=== PATIENT | male | born 1990 | race Native Hawaiian/Other Pacific Islander ===

== ENCOUNTER 2022-02-21 08:19 | Inpatient (IN) | payer BC ==
[2022-02-21] MEDS ORDERED: DICYCLOMINE HCL 10 MG CAPSULE PO PRN (09:31)
[2022-02-21] MEDS ORDERED: chlordiazePOXIDE HCL 25 MG CAPSULE PO PRN (09:31)
[2022-02-21] MEDS ORDERED: POLYETHYLENE GLYCOL (HEALTHYLAX) 3350 17 GM PACKET PO PRN (09:31)
[2022-02-21] MEDS ORDERED: BISMUTH SUBSALICYLATE 524 MG/30 ML PO PRN (09:31)
[2022-02-21] MEDS ORDERED: ACETAMINOPHEN 325 MG TABLET (FP) PO PRN ×2 (09:31)
[2022-02-21] MEDS ORDERED: MAG HYDROX/AL HYDROX/SIMETH 30 ML UNIT-DOSE CUP PO PRN (09:31)
[2022-02-21] MEDS ORDERED: BENZOCAINE/MENTHOL (CHLORASEPTIC ) LOZENGE MM PRN (09:31)
[2022-02-21] MEDS ORDERED: IBUPROFEN 400 MG TABLET (FP) PO PRN (09:31)
[2022-02-21] MEDS ORDERED: ONDANSETRON *ODT* 4 MG TABLET SL PRN (09:31)
[2022-02-21] MEDS ORDERED: IBUPROFEN 600 MG TABLET (FP) PO PRN (09:31)
[2022-02-21] MEDS ORDERED: NALOXONE HCL (KLOXXADO) 8 MG SPRAY NS PRN (09:31)
[2022-02-21] MEDS ORDERED: MAGNESIUM HYDROX 2400MG/30ML ORAL SUSPENSION 30 ML CUP PO PRN (09:31)
[2022-02-21] MEDS ORDERED: LOPERAMIDE HCL 2 MG CAPSULE PO PRN (09:31)
[2022-02-21 09:41] VITALS: BMI 24.7
[2022-02-21] MEDS ORDERED: chlordiazePOXIDE HCL 25 MG CAPSULE ONE (10:13)
[2022-02-21] MEDS ORDERED: chlordiazePOXIDE HCL 25 MG CAPSULE PO ONE (10:15)
[2022-02-21] MEDS: PRENATAL VITAMINS W/ FOLIC ACID TABLET (FP) PO SCH (10:59)
[2022-02-21] MEDS: chlordiazePOXIDE HCL 25 MG CAPSULE PO SCH ×3 (12:03→22:42)
[2022-02-21 14:51] LABS: HEMATOCRIT 48.9 % (35.4-49); HEMOGLOBIN 16.5 GM/dL (11.7-16.9); MCH 29.7 pg (25.7-33.7); MCHC 33.7 g/dl (32.0-35.9); MEAN CELL VOLUME 88.2 fl (80-96); MEAN PLT VOLUME 7.7 fl (7.5-11.1); PLATELET COUNT 346 10^3/uL (134-434); RBC 5.54 M/mm3 (4.00-5.60); RDW 14.9 % (11.9-15.9); WHITE BLOOD COUNT 5.9 K/mm3 (4.0-10.0)
[2022-02-21 15:54] LABS: ALBUMIN 4.3 g/dl (3.4-5.0); BLOOD UREA NITROGEN 15.9 mg/dL (7-18); CREATININE 0.9 mg/dL (0.55-1.3)
[2022-02-21 15:56] LABS: BILIRUBIN,TOTAL 2.1 mg/dL (0.2-1); CALCIUM 10.1 mg/dL (8.5-10.1)
[2022-02-21] MEDS: THIAMINE HCL 100 MG TABLET (FP) PO SCH (22:41)
[2022-02-21] MEDS: MELATONIN 5 MG TABLETS PO SCH (22:42)
[2022-02-22] MEDS: chlordiazePOXIDE HCL 25 MG CAPSULE PO SCH ×4 (05:13→22:27)
[2022-02-22] MEDS: METHOCARBAMOL 500 MG TABLET PO PRN (10:28)
[2022-02-22] MEDS: hydrOXYzine PAMOATE 25 MG CAPSULE (FP) PO PRN ×2 (10:28→13:32)
[2022-02-22] MEDS: PRENATAL VITAMINS W/ FOLIC ACID TABLET (FP) PO SCH (10:29)
[2022-02-22] MEDS: FLUoxetine HCL 20 MG CAPSULE PO SCH (10:29)
[2022-02-22] MEDS: GABAPENTIN 300 MG, GABAPENTIN 200 MG PO SCH ×2 (13:32→22:26)
[2022-02-22] MEDS ORDERED: GABAPENTIN 100 MG CAPSULE PO SCH (14:00)
[2022-02-22] MEDS ORDERED: MIRTAZAPINE 15 MG TABLET (FP) PO SCH (22:00)
[2022-02-22] MEDS: THIAMINE HCL 100 MG TABLET (FP) PO SCH (22:26)
[2022-02-22] MEDS: MELATONIN 5 MG TABLETS PO SCH (22:30)
[2022-02-23] MEDS: chlordiazePOXIDE HCL 25 MG CAPSULE PO SCH ×2 (05:24→10:16)
[2022-02-23] MEDS: GABAPENTIN 300 MG, GABAPENTIN 200 MG PO SCH (05:25)
[2022-02-23 09:38] VITALS: BP 128/76; PULSE 101; RESP 16; TEMP 97
[2022-02-23] MEDS ORDERED: LACTULOSE 20 GM/30 ML UDC (FOR ORAL USE ONLY) PO SCH (10:00)
[2022-02-23] MEDS: PRENATAL VITAMINS W/ FOLIC ACID TABLET (FP) PO SCH (10:15)
[2022-02-23] MEDS: FLUoxetine HCL 20 MG CAPSULE PO SCH (10:16)
[2022-02-23] MEDS: METHOCARBAMOL 500 MG TABLET PO PRN (10:16)
[2022-02-23] MEDS: hydrOXYzine PAMOATE 25 MG CAPSULE (FP) PO PRN (10:16)
[2022-02-24] MEDS ORDERED: chlordiazePOXIDE HCL 10 MG CAPSULE PO PRN
[2022-02-24] MEDS ORDERED: chlordiazePOXIDE HCL 10 MG CAPSULE PO SCH (05:00)
[2022-02-25] MEDS ORDERED: chlordiazePOXIDE HCL 10 MG CAPSULE PO SCH (05:00)
[2022-02-26] MEDS ORDERED: chlordiazePOXIDE HCL 10 MG CAPSULE PO ONE (05:00)
== END 2022-02-23 13:05 | disposition left against medical advice (07) | DRG 770 ==
LOC: YASAS 08:19 → Y6N 10:16
PROVIDERS: ADMIT Allergy & Immunology; ATTEND Surgery
PROC: HZ2ZZZZ Detoxification Services for Substance Abuse Treatment (ICD-10-PCS; principal; 2022-02-21)
DX: F10.230 Alcohol dependence with withdrawal, uncomplicated (principal); F12.20 Cannabis dependence, uncomplicated; F10.282 Alcohol dependence with alcohol-induced sleep disorder; F33.1 Major depressive disorder, recurrent, moderate; F41.1 Generalized anxiety disorder; R79.89 Other specified abnormal findings of blood chemistry; Z62.810 Personal history of physical and sexual abuse in childhood
CPT/HCPCS: 36415; 80053; 82140; 85027; 86780; C9803-CS; U0003; U0005

== ENCOUNTER 2024-04-04 12:18 | Inpatient (IN) | payer BC ==
[2024-04-04 12:48] VITALS: BMI 33.0
[2024-04-04] MEDS ORDERED: DICYCLOMINE HCL 10 MG CAPSULE PO PRN (13:39)
[2024-04-04] MEDS ORDERED: MAGNESIUM HYDROX 2400MG/30ML ORAL SUSPENSION 30 ML CUP PO PRN (13:39)
[2024-04-04] MEDS ORDERED: ONDANSETRON *ODT* 4 MG TABLET SL PRN (13:39)
[2024-04-04] MEDS ORDERED: IBUPROFEN 400 MG TABLET (FP) PO PRN (13:39)
[2024-04-04] MEDS ORDERED: diazePAM 5 MG TABLET PO PRN (13:39)
[2024-04-04] MEDS ORDERED: MAG HYDROX/AL HYDROX/SIMETH 30 ML UNIT-DOSE CUP PO PRN (13:39)
[2024-04-04] MEDS ORDERED: LOPERAMIDE HCL 2 MG CAPSULE PO PRN (13:39)
[2024-04-04] MEDS ORDERED: BENZOCAINE/MENTHOL (CHLORASEPTIC ) LOZENGE MM PRN (13:39)
[2024-04-04] MEDS ORDERED: NALOXONE (NARCAN) HCL 4 MG/0.1 ML SPRAY NS PRN (13:39)
[2024-04-04] MEDS ORDERED: guaiFENesin 600 MG TABLET.ER (FP) PO PRN (13:39)
[2024-04-04] MEDS ORDERED: BENZONATATE 200 MG CAPSULE PO PRN (13:39)
[2024-04-04] MEDS ORDERED: IBUPROFEN 600 MG TABLET (FP) PO PRN (13:39)
[2024-04-04] MEDS ORDERED: POLYETHYLENE GLYCOL (HEALTHYLAX) 3350 17 GM PACKET PO PRN (13:39)
[2024-04-04] MEDS ORDERED: BISMUTH SUBSALICYLATE 262 MG/15 ML BTL PO PRN (13:39)
[2024-04-04] MEDS ORDERED: ACETAMINOPHEN 325 MG TABLET (FP) PO PRN (13:39)
[2024-04-04] MEDS: PRENATAL VITAMINS W/ FOLIC ACID TABLET (FP) PO SCH (15:13)
[2024-04-04] MEDS: diazePAM 5 MG TABLET PO SCH (17:11)
[2024-04-04] MEDS: METHOCARBAMOL 500 MG TABLET PO PRN (22:32)
[2024-04-04] MEDS: THIAMINE 100 MG TABLET PO SCH (22:32)
[2024-04-04] MEDS: MELATONIN 5 MG TABLETS PO SCH (22:32)
[2024-04-05 11:37] LABS: HEMATOCRIT 43.8 % (35.4-49); HEMOGLOBIN 14.7 GM/dL (11.7-16.9); MCH 28.4 pg (25.7-33.7); MCHC 33.5 g/dl (32.0-35.9); MEAN CELL VOLUME 84.6 fl (80-96); PLATELET COUNT 254 10^3/uL (134-434); RBC 5.17 M/mm3 (4.00-5.60); RDW 14.6 % (11.9-15.9); WHITE BLOOD COUNT 3.8 K/mm3 (4.0-10.0)
[2024-04-05 13:44] LABS: CHLORIDE 107 mmol/L (98-107); SODIUM 140 mmol/L (136-145)
[2024-04-05 13:51] LABS: ALBUMIN 3.6 g/dl (3.4-5.0); BLOOD UREA NITROGEN 15.3 mg/dL (7-18); GLUCOSE,RANDOM 89 mg/dL (74-106)
[2024-04-05 13:52] LABS: ANION GAP 8 mmol/L (4-13); CO2 25 mmol/L (21-32); CREATININE 0.8 mg/dL (0.55-1.3)
[2024-04-05 13:53] LABS: BILIRUBIN,TOTAL 1.2 mg/dL (0.2-1); TOT PROT 6.6 g/dl (6.4-8.2)
[2024-04-05 13:54] LABS: SGOT/AST 41 U/L (15-37); SGPT/ALT 73 U/L (13-61)
[2024-04-05 13:55] LABS: ALK PHOS 90 U/L (45-117)
[2024-04-05] MEDS: hydrOXYzine PAMOATE 25 MG CAPSULE (FP) PO PRN (18:50)
[2024-04-06] MEDS: diazePAM 5 MG TABLET PO SCH (05:23)
[2024-04-07] MEDS: diazePAM 5 MG TABLET PO SCH (05:18)
[2024-04-08] MEDS: diazePAM 5 MG TABLET PO ONE (05:25)
[2024-04-08] MEDS: NALOXONE (NYS OPIOID OVERDOSE PROGRAM) 4 MG/0.1 ML SPRAY NS SCH (09:07)
[2024-04-08 09:58] VITALS: BP 127/80; PULSE 74; RESP 18; TEMP 97.7
== END 2024-04-08 09:24 | disposition home or self-care (01) | DRG 775 ==
LOC: YASAS 12:18 → Y3N 14:54
PROVIDERS: ADMIT Allergy & Immunology; ATTEND Surgery
PROC: HZ2ZZZZ Detoxification Services for Substance Abuse Treatment (ICD-10-PCS; principal; 2024-04-04)
DX: F10.230 Alcohol dependence with withdrawal, uncomplicated (principal); F12.20 Cannabis dependence, uncomplicated; F41.1 Generalized anxiety disorder; F33.9 Major depressive disorder, recurrent, unspecified; G47.00 Insomnia, unspecified
CPT/HCPCS: 36415; 80053; 80305; 80307; 85027; 86593; 86780; 93005; 93010